=== PATIENT | female | born 2000 | race African-American/Black ===

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

== ENCOUNTER 2019-02-28 22:39 | Emergency (ER) | payer OTHER ==
[~2019-02-28] VITALS: Ht 165.1 cm; Wt 98.2 kg
[2019-02-28] MEDS ORDERED: GI COCKTAIL 50ML BTL(HYOSCYAMINE/MAALOX/LIDOCAINE VISCOUS)(1:3:1) PO ONE (23:00)
[2019-02-28 23:51] LABS: BASO % 0.6 % (0.0-1.0); EOS # 0.1 10^3/uL (0.0-0.5); EOS % 1.3 % (0.0-3.0); HEMATOCRIT 37.2 % (36.0-47.0); LYMPH # 2.5 10^3/uL (1.5-5.0); LYMPH % 39.5 % (24.0-44.0); MEAN CORPUSCULAR HEMOGLOBIN 27.9 pg (27.0-33.0); MEAN CORPUSCULAR HGB CONC 32.3 g/dl (32.0-36.5); MEAN CORPUSCULAR VOLUME 86.5 fl (80.0-96.0); MONO # 0.5 10^3/uL (0.0-0.8); MONO % 7.3 % (0.0-5.0); NEUTROPHILS # 3.2 10^3/uL (1.5-8.5); NEUTROPHILS % 51.1 % (36.0-66.0); PLATELET COUNT, AUTOMATED 268 10^3/uL (150-450); WHITE BLOOD COUNT 6.3 10^3/uL (4.0-10.0)
[2019-03-01 00:23] LABS: BLOOD UREA NITROGEN 13 MG/DL (7-18); CALCIUM LEVEL 8.6 MG/DL (8.5-10.1); CARBON DIOXIDE LEVEL 24 MEQ/L (21-32); CHLORIDE LEVEL 111 MEQ/L (98-107); CREATININE FOR GFR 0.88 MG/DL (0.55-1.30); FREE T4 0.89 NG/DL (0.78-1.33); GLUCOSE, FASTING 112 MG/DL (70-100); MAGNESIUM LEVEL 1.9 MG/DL (1.4-2.0); POTASSIUM SERUM 3.8 MEQ/L (3.5-5.1); SODIUM LEVEL 144 MEQ/L (136-145)
[2019-03-01 00:27] LABS: ACETAMINOPHEN LEVEL < 2.0 UG/ML (10.0-30.0); ETHYL ALCOHOL (ETHANOL) < 0.003 % (0.000-0.010); SALICYLATE LEVEL < 1.7 MG/DL (5.0-30.0)
[2019-03-01 00:43] LABS: HCG, SERUM QUALITATIVE NEGATIVE (NEGATIVE)
--- NOTE | 2019-03-01 01:52 | REPVR ---
EXAM: CT Head Without Contrast EXAM DATE/TIME: 02/28/2019 12:47 AM CLINICAL HISTORY: 18 years old, female; Syncope and collapse TECHNIQUE: Imaging protocol: Computed tomography of the head without contrast. Radiation optimization: All CT scans at this facility use at least one of these dose optimization techniques: automated exposure control; mA and/or kV adjustment per patient size (includes targeted exams where dose is matched to clinical indication); or iterative reconstruction. COMPARISON: CT Head without contrast 12/30/2015 11:55 PM FINDINGS: Brain: No acute intracranial hemorrhage or mass effect. No discrete geographic area of hypoattenuation to suggest territorial infarct identified at this time. Ventricles: No ventriculomegaly. Bones/joints: No acute fracture. Sinuses: No fluid levels. Mastoid air cells: Visualized mastoid air cells are well aerated. Soft tissues: Unremarkable. IMPRESSION: No acute intracranial abnormality. Electronically signed by: Meng Husain On 03/01/2019 01:52:11 AM
--- NOTE | 2019-03-01 01:55 | REPVR ---
EXAM: CT Cervical Spine Without Contrast EXAM DATE/TIME: 02/28/2019 12:47 AM CLINICAL HISTORY: 18 years old, female; Injury or trauma; Fall; Initial encounter; Blunt trauma; Additional info: Syncope TECHNIQUE: Imaging protocol: Computed tomography images of the cervical spine without contrast. Radiation optimization: All CT scans at this facility use at least one of these dose optimization techniques: automated exposure control; mA and/or kV adjustment per patient size (includes targeted exams where dose is matched to clinical indication); or iterative reconstruction. COMPARISON: CT Spine,cervical w/o contrast 12/30/2015 11:55 PM FINDINGS: Vertebrae: No acute fracture. Straightening of the cervical curvature may be secondary to patient positioning and/or muscular spasm. Alignment is otherwise grossly preserved. Discs/Spinal canal/Neural foramina: The bony spinal canal is grossly patent. Soft tissues: Unremarkable. Lungs: Visualized lung apices are normal. IMPRESSION: No acute bony abnormalities of the cervical spine. Straightening of the cervical curvature may be secondary to patient positioning and/or muscular spasm. Electronically signed by: Meng Husain On 03/01/2019 01:55:18 AM
[2019-03-01 02:30] VITALS: BP 129/82
[2019-03-01] MEDS ORDERED: KETOROLAC 30 MG/ML VIAL (J1885) IV ONE (02:30)
--- NOTE | 2019-03-01 05:59 | ECGEPIP ---
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
--- NOTE | 2019-03-01 09:28 | REP ---
REASON: Syncopal episode. The technique utilized in obtaining the radiograph has magnified the cardiac silhouette and accentuated the interstitial markings. FINDINGS: The technique utilized in obtaining the radiograph has magnified the cardiac silhouette and accentuated the interstitial markings. The superior mediastinal structures are midline. The cardiac silhouette is unremarkable in size, shape, and position. The diaphragmatic surfaces of the lungs are regular, and the costophrenic angles are clear. The pulmonary maki are clear. The imaged osseous structures are intact. IMPRESSION: There is no acute cardiopulmonary disease. Electronically Signed by Daniel Robledo DO 03/01/2019 09:45 A
== END 2019-03-01 02:45 | disposition home or self-care (01) ==
LOC: M ED 22:39
DX: R55 Syncope and collapse (principal); Z87.891 Personal history of nicotine dependence; Z88.2 Allergy status to sulfonamides; Z88.8 Allergy status to other drugs, medicaments and biological substances
CPT/HCPCS: 70450; 71045; 72125; 80048; 83735; 84439; 84443; 84703; 85025; 93005; 93041; 94760; 96374; 99285; G0480; J1885

== ENCOUNTER → 2020-03-19 | Outpatient (REF) | payer OTHER | LOC: M WUC 18:29 | PROVIDERS: ATTEND Nurse Practitioner Family | DX: N39.0 Urinary tract infection, site not specified (principal) ==

== ENCOUNTER → 2020-04-28 | Outpatient (CLI) | payer SELFPAY | LOC: M LABSMTC 13:53 | PROVIDERS: ATTEND Pediatrics | DX: Z20.828 Contact with and (suspected) exposure to other viral communicable diseases (principal) ==

== ENCOUNTER → 2022-04-05 | Outpatient (REF) | payer OTHER ==
[2022-04-05 18:57] LABS: GC DNA AMPLIFICATION NEGATIVE (NEGATIVE)
== END ==
LOC: M LAB REF 16:26
PROVIDERS: ATTEND Physician Assistant
DX: R30.0 Dysuria (principal)

== ENCOUNTER → 2024-08-14 | Outpatient (CLI) | payer MEDICAID | LOC: M WHC 10:45 | PROVIDERS: ATTEND Physician Assistant | DX: O26.891 Other specified pregnancy related conditions, first trimester (principal); Z32.01 Encounter for pregnancy test, result positive; R10.2 Pelvic and perineal pain; Z3A.08 8 weeks gestation of pregnancy; Z36.87 Encounter for antenatal screening for uncertain dates ==